=== PATIENT | female | born 1980 | race Asian ===

== ENCOUNTER 2018-04-23 20:19 | Emergency (ER) | payer OTHER ==
[~2018-04-23] VITALS: Ht 152.4 cm; Wt 74.8 kg
[~2018-04-23 20:19] MED LIST: IBUP-1223 PO; OXYC-302 PO; PNV1TABL4 PO; SENN-87 PO
[2018-04-23] MEDS ORDERED: SODIUM CHLORIDE 0.9% 1,000ML IVBOLUS ONE (21:00)
[2018-04-23] MEDS ORDERED: ONDANSETRON 2MG/ML, 2ML IVPush ONE (21:00)
[2018-04-23 21:10] LABS: CULTURE INDICATED? YES; MICROSCOPIC INDICATED
[2018-04-23 21:23] LABS: BASOPHILS # (AUTO) 0.05 x10^3/uL (0-0.1); BASOPHILS % (AUTO) 0 % (0-1); EOSINOPHILS # (AUTO) 0.18 x10^3/uL (0-0.4); EOSINOPHILS % (AUTO) 1 % (1-7); LYMPHOCYTES # (AUTO) 2.61 x10^3/uL (1-3.4); LYMPHOCYTES % (AUTO) 20 % (22-44); MD NO; MEAN CORPUSCULAR HEMOGLOBIN 29.2 pg (27.0-34.8); MEAN CORPUSCULAR HGB CONC 33.5 g/dL (32.4-35.8); MEAN CORPUSCULAR VOLUME 87.3 fL (80-100); MEAN PLATELET VOLUME 7.8 fL (7.4-10.4); MONOCYTES # (AUTO) 0.63 x10^3/uL (0.2-0.8); MONOCYTES % (AUTO) 5 % (2-9); NEUTROPHILS # (AUTO) 9.71 x10^3/uL (1.8-6.8); NEUTROPHILS % (AUTO) 74 % (42-75); PLATELET COUNT 270 x10^3/uL (130-400); RED BLOOD COUNT 4.09 x10^6/uL (3.82-5.3); RED CELL DISTRIBUTION WIDTH 13.7 % (9.6-15.2)
[2018-04-23 21:34] LABS: ALANINE AMINOTRANSFERASE 18 U/L (12-78); ALBUMIN 2.7 g/dL (3.4-5.0); ANION GAP 7 mmol/L (5-15); CALCIUM 8.5 mg/dL (8.5-10.1); CHLORIDE 107 mmol/L (98-107); CREATININE 0.58 mg/dL (0.55-1.02)
[2018-04-23 21:36] LABS: ALKALINE PHOSPHATASE 90 U/L (45-117); BILIRUBIN,TOTAL 0.3 mg/dL (0.2-1.0); TOTAL PROTEIN 7.4 g/dL (6.4-8.2)
[2018-04-23 22:07] VITALS: BP 111/64
== END 2018-04-23 22:32 | disposition home or self-care (01) ==
LOC: ED 22:25
DX: O99.612 Diseases of the digestive system complicating pregnancy, second trimester (principal); K92.89 Other specified diseases of the digestive system; A09 Infectious gastroenteritis and colitis, unspecified; K80.20 Calculus of gallbladder without cholecystitis without obstruction; Z3A.24 24 weeks gestation of pregnancy
CPT/HCPCS: 36415; 76700; 80053; 81001; 83690; 85025; 87086; 96360; 99285; J7030

== ENCOUNTER 2018-05-04 12:05 | Observation (INO) | payer OTHER ==
[2018-05-03 08:47] VITALS: BP 118/75
[~2018-05-04] VITALS: Ht 160 cm; Wt 76.0 kg
[2018-05-04] MEDS ORDERED: LACTATED RINGERS 1,000 ML IV SCH (12:20)
[2018-05-04] MEDS ORDERED: LIDOCAINE-MPF 1%, 2ML INFIL ONE (12:30)
[2018-05-04 12:32] VITALS: BP 118/75
[2018-05-04] MEDS ORDERED: FENTANYL PF 250 MCG/5ML ONE (13:17)
[2018-05-04] MEDS ORDERED: BUPIVACAINE/PF-EPI 0.5% 1:200K ONE (14:12)
[2018-05-04] MEDS ORDERED: SUCCINYLCHOLINE 20 MG/ML, 10ML ONE (14:44)
[2018-05-04] MEDS ORDERED: ONDANSETRON 2MG/ML, 2ML ONE (14:44)
[2018-05-04] MEDS ORDERED: PROPOFOL 10 MG/ML, 20ML ONE (14:44)
[2018-05-04] MEDS ORDERED: CEFAZOLIN 1,000 MG ONE (14:44)
[2018-05-04] MEDS ORDERED: ROCURONIUM 10 MG/ML,10ML ONE (14:44)
[2018-05-04] MEDS ORDERED: SUGAMMADEX 200 MG/2 ML IVPush ONE (15:21)
[2018-05-04] MEDS ORDERED: FENTANYL PF 100 MCG/2ML ONE (16:00)
[2018-05-04] MEDS ORDERED: HYDROmorphone 1 MG/ML, 1ML IV PRN (16:00)
[2018-05-04] MEDS ORDERED: ACETAMINOPHEN 650 MG/20.3 ML UDC ONE (16:00)
[2018-05-04] MEDS ORDERED: ACETAMINOPHEN 325 MG TABLET PO PRN (16:00)
[2018-05-04] MEDS ORDERED: OXYcodone 5 MG/5 ML ORAL.SOL UDC PO PRN (16:00)
[2018-05-04] MEDS ORDERED: OXYcodone 5 MG/5 ML ORAL.SOL UDC ONE (16:00)
[2018-05-04] MEDS: FENTANYL PF 100 MCG/2ML IV PRN ×2 (16:08→16:15)
[2018-05-04] MEDS ORDERED: HYDROcodone/APAP 7.5-325MG/15ML UDC ONE (17:53)
[2018-05-04] MEDS ORDERED: KETOROLAC 30 MG/1 ML ONE (17:53)
[2018-05-04] MEDS ORDERED: KETOROLAC 30 MG/1 ML IM ONE (18:00)
[2018-05-04] MEDS ORDERED: HYDROcodone/APAP 7.5-325MG/15ML UDC PO ONE (18:00)
== END 2018-05-04 20:00 | disposition home or self-care (01) ==
LOC: OUT 12:05 → LDIP 16:49 → OUT 18:12 → LDIP 18:12
PROVIDERS: ADMIT Obstetrics & Gynecology; ATTEND Obstetrics & Gynecology
DX: O99.612 Diseases of the digestive system complicating pregnancy, second trimester (principal); K80.20 Calculus of gallbladder without cholecystitis without obstruction; Z3A.24 24 weeks gestation of pregnancy
CPT/HCPCS: 47564; 88304; 96372; G0378; J0330; J0690; J1885; J2405; J2704; J3010; J7120

== ENCOUNTER 2018-08-10 21:58 | Emergency (ER) | payer OTHER ==
[~2018-08-10] VITALS: Ht 152.4 cm; Wt 80.0 kg
[~2018-08-10 21:58] MED LIST changes: +DOCU-131 PO; +FERR325T18 PO; +IBUP-1222 PO; +URSO300C27 PO
[2018-08-10 22:28] VITALS: BP 149/77
[2018-08-10] MEDS ORDERED: SODIUM CHLORIDE FLUSH 10ML SYR IVF ONE (22:30)
[2018-08-10 22:56] LABS: MICROSCOPIC AUTO
[2018-08-10 23:01] LABS: INTERNATIONAL NORMALIZED RATIO 1.01 (0.93-1.1); PROTHROMBIN TIME 10.4 Seconds (9.6-11.5)
[2018-08-10 23:02] LABS: CULTURE INDICATED? YES
[2018-08-10 23:04] LABS: ALANINE AMINOTRANSFERASE 91 U/L (12-78); ALBUMIN 2.2 g/dL (3.4-5.0); ANION GAP 11 mmol/L (5-15); CALCIUM 8.8 mg/dL (8.5-10.1); CHLORIDE 109 mmol/L (98-107)
[2018-08-10 23:07] LABS: BASOPHILS # (AUTO) 0.15 x10^3/uL (0-0.1); BASOPHILS % (AUTO) 2 % (0-1); EOSINOPHILS # (AUTO) 0.19 x10^3/uL (0-0.4); EOSINOPHILS % (AUTO) 2 % (1-7); LYMPHOCYTES # (AUTO) 2.52 x10^3/uL (1-3.4); LYMPHOCYTES % (AUTO) 26 % (22-44); MD NO; MEAN CORPUSCULAR HEMOGLOBIN 26.4 pg (27.0-34.8); MEAN CORPUSCULAR HGB CONC 32.2 g/dL (32.4-35.8); MEAN CORPUSCULAR VOLUME 81.8 fL (80-100); MEAN PLATELET VOLUME 8.8 fL (7.4-10.4); MONOCYTES % (AUTO) 6 % (2-9); NEUTROPHILS # (AUTO) 6.34 x10^3/uL (1.8-6.8); NEUTROPHILS % (AUTO) 65 % (42-75); PLATELET COUNT 296 x10^3/uL (130-400); RED BLOOD COUNT 3.87 x10^6/uL (3.82-5.3); RED CELL DISTRIBUTION WIDTH 14.7 % (9.6-15.2)
[2018-08-10 23:09] LABS: ALKALINE PHOSPHATASE 162 U/L (45-117); BILIRUBIN,TOTAL 0.1 mg/dL (0.2-1.0); CREATININE 0.82 mg/dL (0.55-1.02); TOTAL PROTEIN 6.9 g/dL (6.4-8.2); TROPONIN I < 0.015 ng/mL (0.000-0.045)
== END 2018-08-10 23:30 | disposition home or self-care (01) ==
LOC: ED 23:21
DX: O90.89 Other complications of the puerperium, not elsewhere classified (principal); R60.0 Localized edema; I10 Essential (primary) hypertension; R51 Headache
CPT/HCPCS: 36415; 71045; 80053; 81001; 82570; 83880; 84156; 84484; 84550; 85025; 85610; 87086; 93005; 93970; 99285

== ENCOUNTER 2018-08-10 23:31 | Observation (INO) | payer OTHER ==
[~2018-08-10] VITALS: Ht 152.4 cm; Wt 80.0 kg
[2018-08-10] MEDS ORDERED: IBUPROFEN 600 MG TABLET ONE (23:46)
[2018-08-11] MEDS ORDERED: FUROSEMIDE 20 MG/2 ML ONE (00:28)
[2018-08-11] MEDS ORDERED: OXYcodone IR 5MG TABLET ONE ×2 (00:45→06:09)
[2018-08-11] MEDS: OXYcodone IR 5MG TABLET PO PRN ×2 (00:55→06:12)
[2018-08-11] MEDS ORDERED: FUROSEMIDE 20 MG/2 ML IV ONE (01:00)
[2018-08-11 06:12] LABS: ALBUMIN 2.2 g/dL (3.4-5.0); ANION GAP 7 mmol/L (5-15); CALCIUM 8.7 mg/dL (8.5-10.1); CHLORIDE 110 mmol/L (98-107)
[2018-08-11 06:15] LABS: ALANINE AMINOTRANSFERASE 84 U/L (12-78); ALKALINE PHOSPHATASE 161 U/L (45-117); BILIRUBIN,TOTAL 0.1 mg/dL (0.2-1.0); TOTAL PROTEIN 6.6 g/dL (6.4-8.2)
== END 2018-08-11 08:00 | disposition home or self-care (01) ==
LOC: LDOP 23:31 → LDIP 23:32
PROVIDERS: ADMIT Obstetrics & Gynecology; ATTEND Obstetrics & Gynecology
DX: O13.9 Gestational [pregnancy-induced] hypertension without significant proteinuria, unspecified trimester (principal); Z3A.00 Weeks of gestation of pregnancy not specified
CPT/HCPCS: 36415; 80053; 96374; G0378; J1940

== ENCOUNTER 2019-10-16 11:33 | Emergency (ER) | payer OTHER ==
[~2019-10-16] VITALS: Ht 152.4 cm; Wt 71.0 kg
[~2019-10-16 11:33] MED LIST changes: -SENN-87 PO; +SENN-88 PO
[2019-10-16 11:42] VITALS: BP 121/59
--- NOTE | 2019-10-16 12:17 | NUR ---
IV PLACED, LABS DRAWN WITH START. PT COMFORTABLE AT THIS TIME. CALL LIGHT WITHIN REACH, WARM BLANKET PROVIDED.
[2019-10-16] MEDS ORDERED: SODIUM CHLORIDE FLUSH 10ML SYR IVF ONE (12:30)
[2019-10-16 12:40] LABS: BASOPHILS # (AUTO) 0.04 x10^3/uL (0-0.1); BASOPHILS % (AUTO) 1 % (0-1); EOSINOPHILS # (AUTO) 0.16 x10^3/uL (0-0.4); EOSINOPHILS % (AUTO) 2 % (1-7); LYMPHOCYTES # (AUTO) 2.56 x10^3/uL (1-3.4); LYMPHOCYTES % (AUTO) 30 % (22-44); MD NO; MEAN CORPUSCULAR HEMOGLOBIN 29.1 pg (27.0-34.8); MEAN CORPUSCULAR HGB CONC 32.5 g/dL (32.4-35.8); MEAN CORPUSCULAR VOLUME 89.5 fL (80-100); MEAN PLATELET VOLUME 7.9 fL (7.4-10.4); MONOCYTES # (AUTO) 0.51 x10^3/uL (0.2-0.8); MONOCYTES % (AUTO) 6 % (2-9); NEUTROPHILS # (AUTO) 5.32 x10^3/uL (1.8-6.8); NEUTROPHILS % (AUTO) 62 % (42-75); PLATELET COUNT 237 x10^3/uL (130-400); RED BLOOD COUNT 4.31 x10^6/uL (3.82-5.3); RED CELL DISTRIBUTION WIDTH 13.7 % (9.6-15.2)
[2019-10-16 12:43] LABS: ALANINE AMINOTRANSFERASE 44 U/L (12-78); ALBUMIN 3.2 g/dL (3.4-5.0); ANION GAP 6 mmol/L (5-15); CALCIUM 8.3 mg/dL (8.5-10.1); CHLORIDE 110 mmol/L (98-107); CREATININE 0.74 mg/dL (0.55-1.02)
[2019-10-16 12:48] LABS: ALKALINE PHOSPHATASE 114 U/L (45-117); BILIRUBIN,TOTAL 0.4 mg/dL (0.2-1.0); TOTAL PROTEIN 7.7 g/dL (6.4-8.2); TROPONIN I < 0.015 ng/mL (0.000-0.045)
--- NOTE | 2019-10-16 13:32 | NUR ---
PT TO CT.
[2019-10-16] MEDS ORDERED: OMNIPAQUE 350 MG/ML, 100ML BOTTLE ONE (13:45)
--- NOTE | 2019-10-16 14:01 | NUR ---
CTA RESULTS BACK, PT FOR RECHECK.
== END 2019-10-16 14:46 | disposition home or self-care (01) ==
LOC: ED 12:08
DX: R07.89 Other chest pain (principal)
CPT/HCPCS: 36415; 71275; 80053; 84484; 84703; 85025; 93005; 99284; Q9967